=== PATIENT | female | born 1970 | race Caucasian/White ===

== ENCOUNTER 2016-11-15 15:57 | Emergency (ER) | payer OTHER ==
[2016-11-15 18:36] VITALS: BP 117/75
== END 2016-11-15 18:36 | disposition home or self-care (01) ==
LOC: ED 15:57
DX: F41.9 Anxiety disorder, unspecified (principal); G47.00 Insomnia, unspecified

== ENCOUNTER 2016-12-01 15:31 | Emergency (ER) | payer OTHER ==
[~2016-12-01] VITALS: Ht 165.1 cm; Wt 64.4 kg
[2016-12-01 19:05] VITALS: BP 128/83
== END 2016-12-01 19:14 | disposition home or self-care (01) ==
LOC: ED 15:31
DX: H66.91 Otitis media, unspecified, right ear (principal); J03.90 Acute tonsillitis, unspecified
CPT/HCPCS: J1885; J2930

== ENCOUNTER 2017-01-01 01:09 | Emergency (ER) | payer OTHER ==
[2017-01-01 02:16] LABS: BASOPHIL % 0.6 % (0-2); PLATELET COUNT 304 x10^3mcL (130-400)
[2017-01-01 02:17] LABS: RED CELL DISTRIBUTION WIDTH 15.1 % (11.5-14.5)
[2017-01-01 02:24] LABS: CALCIUM 8.6 mg/dL (8.5-10.1); CARBON DIOXIDE 24.7 mmol/L (21-32); CHLORIDE SERUM 110 mmol/L (98-107); CREATININE SERUM 0.8 mg/dL (0.6-1.0); GFR1 > 60 mL/min; GLUCOSE SERUM 114 mg/dL (74-106); POTASSIUM SERUM 3.8 mmol/L (3.5-5.1); SODIUM SERUM 146 mmol/L (136-145)
[2017-01-01 02:25] LABS: microscopic required? NO
[2017-01-01 02:28] LABS: ALKALINE PHOSPHATASE 104 U/L (46-116); ALT/SGPT 19 U/L (14-59); AST/SGOT 15 U/L (15-37); BILIRUBIN TOTAL 0.11 mg/dL (0.20-1.00); LIPASE 207 IU/L (73-393); TOTAL PROTEIN, SERUM 6.7 g/dL (6.4-8.2)
[2017-01-01 02:30] LABS: ALBUMIN 3.3 g/dL (3.4-5.0)
[2017-01-01 02:30] LABS: UA SPECIFIC GRAVITY 1.025 (1.005-1.035); urine erythrocyte NEGATIVE (NEGATIVE)
[2017-01-01 04:39] VITALS: BP 129/81
== END 2017-01-01 04:39 | disposition home or self-care (01) ==
LOC: ED 01:09
PROVIDERS: Emergency Medicine
DX: R10.9 Unspecified abdominal pain (principal)
CPT/HCPCS: 36415; J1885

== ENCOUNTER 2017-03-08 16:44 | Emergency (ER) | payer OTHER ==
[~2017-03-08] VITALS: Ht 157.5 cm; Wt 67.6 kg
[2017-03-08 19:08] VITALS: BP 143/97
== END 2017-03-08 19:08 | disposition home or self-care (01) ==
LOC: ED 16:44
DX: K52.9 Noninfective gastroenteritis and colitis, unspecified (principal)
CPT/HCPCS: J1885

== ENCOUNTER 2017-04-18 16:37 | Emergency (ER) | payer SELFPAY ==
[2017-04-18 19:20] VITALS: BP 118/64
== END 2017-04-18 19:20 | disposition home or self-care (01) ==
LOC: ED 16:37
DX: R07.89 Other chest pain (principal)
CPT/HCPCS: J1885; Q0092

== ENCOUNTER 2017-06-12 16:12 | Emergency (ER) | payer OTHER ==
[~2017-06-12] VITALS: Ht 165.1 cm; Wt 69.6 kg
[2017-06-12 21:08] VITALS: BP 160/79
== END 2017-06-12 21:08 | disposition home or self-care (01) ==
LOC: ED 16:12
DX: R51 Headache (principal)
CPT/HCPCS: J2765; Q0163

== ENCOUNTER 2018-07-03 16:56 | Emergency (ER) | payer OTHER ==
[~2018-07-03] VITALS: Ht 165.1 cm; Wt 71.7 kg
[2018-07-03 17:15] VITALS: Ht 165.1 cm; Wt 71.7 kg
[2018-07-03 19:33] LABS: BASOPHIL % 0.7 % (0-2); PLATELET COUNT 354 x10^3mcL (130-400); RED CELL DISTRIBUTION WIDTH 13.6 % (11.5-14.5)
[2018-07-03 19:43] LABS: ALKALINE PHOSPHATASE 119 U/L (46-116); ALT/SGPT 49 U/L (14-59); BILIRUBIN TOTAL 0.27 mg/dL (0.20-1.00); CALCIUM 8.2 mg/dL (8.5-10.1); CREATININE SERUM 0.7 mg/dL (0.6-1.0); GFR1 > 60 mL/min; GLUCOSE SERUM 107 mg/dL (74-106); TOTAL PROTEIN, SERUM 7.5 g/dL (6.4-8.2)
[2018-07-03 20:03] LABS: ALBUMIN 3.4 g/dL (3.4-5.0); AST/SGOT 33 U/L (15-37); CARBON DIOXIDE 26.2 mmol/L (21-32); CHLORIDE SERUM 110 mmol/L (98-107); SODIUM SERUM 144 mmol/L (136-145)
[2018-07-03 23:00] VITALS: BP 130/90
== END 2018-07-03 23:00 | disposition home or self-care (01) ==
LOC: ED 16:56
PROVIDERS: Emergency Medicine
DX: R07.89 Other chest pain (principal); I10 Essential (primary) hypertension
CPT/HCPCS: 36415; 83880; 85378; Q0092

== ENCOUNTER 2018-09-25 20:01 | Emergency (ER) | payer OTHER ==
[~2018-09-25] VITALS: Ht 162.6 cm; Wt 69.9 kg
[2018-09-25 21:07] VITALS: Ht 162.6 cm; Wt 69.9 kg
[2018-09-25 23:17] VITALS: BP 135/88
== END 2018-09-25 23:17 | disposition home or self-care (01) ==
LOC: ED 20:01
DX: R05 Cough (principal); R51 Headache; M79.10 Myalgia, unspecified site; J02.9 Acute pharyngitis, unspecified; I10 Essential (primary) hypertension

== ENCOUNTER 2019-01-31 08:42 | Emergency (ER) | payer SELFPAY ==
[~2019-01-31] VITALS: Ht 165.1 cm; Wt 73.9 kg
[2019-01-31 08:48] VITALS: BP 135/109; Ht 165.1 cm; Wt 73.9 kg
== END 2019-01-31 09:47 | disposition home or self-care (01) ==
LOC: ED 08:42
DX: G44.209 Tension-type headache, unspecified, not intractable (principal); I10 Essential (primary) hypertension
CPT/HCPCS: J1885; Q0162

== ENCOUNTER 2019-05-26 09:58 | Emergency (ER) | payer OTHER ==
[~2019-05-26] VITALS: Ht 165.1 cm; Wt 75.3 kg
[2019-05-26 10:14] VITALS: Ht 165.1 cm; Wt 75.3 kg
[2019-05-26 13:04] VITALS: BP 130/79
== END 2019-05-26 13:04 | disposition home or self-care (01) ==
LOC: ED 09:58
DX: B35.3 Tinea pedis (principal); I10 Essential (primary) hypertension

== ENCOUNTER 2019-05-31 11:06 | Emergency (ER) | payer OTHER ==
[~2019-05-31] VITALS: Ht 167.6 cm; Wt 72.6 kg
[2019-05-31 11:15] VITALS: Ht 167.6 cm; Wt 72.6 kg
[2019-05-31 13:38] VITALS: BP 151/84
== END 2019-05-31 13:38 | disposition home or self-care (01) ==
LOC: ED 11:06
DX: S01.21XA Laceration without foreign body of nose, initial encounter (principal); I10 Essential (primary) hypertension; W22.8XXA Striking against or struck by other objects, initial encounter; Y93.89 Activity, other specified; Y92.89 Other specified places as the place of occurrence of the external cause; Y99.8 Other external cause status
CPT/HCPCS: 90715